=== PATIENT | male | born 1965 | race Caucasian/White ===

== ENCOUNTER 2017-07-16 01:31 | Emergency (ER) | payer OTHER ==
[2017-07-16 01:57] VITALS: BMI 33.3
--- NOTE | 2017-07-16 01:57 | PDOC ---
History of Present Illness - General History Source: Patient Exam Limitations: No Limitations - History of Present Illness Initial Comments: This is a 51 YOM with h/o osteoarthritis of the knee and lumbar disc bulge who presents BIBA c/o nausea, vomiting x7, lightheadedness, and generalized weakness since about 10 pm tonight. He ate a fried chicken sandwich, fries, and Gatorade from [employer] at 9 pm prior to the onset of symptoms, then went to work and began feeling nauseated and lightheaded. He took Nadja [place] and soon after began vomiting non-bloody, non-bilious emesis. He has also had four episodes of diarrhea but he did not check the color of the stool. He denies any recent or current fever, cough, chest pain, SOB, abdominal pain, headache, or other symptoms. He has not been around any sick contacts with similar symptoms. EMS gave him Zofran en route to the ED with relief of his nausea, but he states that his stomach still "doesn't feel right." <Radha Chaves - Last Filed: 07/16/17 04:17> <Charu Brothers - Last Filed: 07/16/17 05:32> - General Chief Complaint: Nausea/Vomiting Stated Complaint: VOMITING Time Seen by Provider: 07/16/17 01:38 Past History - Past Medical History Anemia: No COPD: No Thyroid Disease: No - Immunization History Immunization Up to Date: No - Suicide/Smoking/Psychosocial Hx Smoking History: Never smoked Have you smoked in the past 12 months: No Information on smoking cessation initiated: No Hx Alcohol Use: Yes (Occasional) Drug/Substance Use Hx: No Substance Use Type: Alcohol <Radha Chaves - Last Filed: 07/16/17 04:17> <Charu Brothers - Last Filed: 07/16/17 05:32> - Past Medical History Allergies/Adverse Reactions: Allergies Allergy/AdvReac Type Severity Reaction Status Date / Time Penicillins Allergy Verified 07/16/17 01:40 Home Medications: Ambulatory Orders Ondansetron [Zofran Odt -] 4 mg SL BID #14 od.tablet 07/16/17 Review of Systems - Review of Systems Constitutional: Yes: Chills, Weakness (generalized). No: Fever, Unexplained wgt Loss HEENTM: No: Nose Congestion, Throat Pain Respiratory: No: Cough, Shortness of Breath Cardiac (ROS): No: Chest Pain, Palpitations ABD/GI: Yes: Diarrhea, Nausea, Vomiting. No: Abdominal Distended, Constipated, Abdominal cramping : No: Burning, Dysuria Musculoskeletal: No: Back Pain, Neck Pain Integumentary: No: Bruising, Rash Neurological: Yes: Other (lightheaded). No: Headache, Numbness, Tingling, Weakness Endocrine: No: Unexplained Weight Gain, Unexplained Weight Loss <Radha hCaves - Last Filed: 07/16/17 04:17> *Physical Exam - Vital Signs Last Vital Signs Temp Pulse Resp BP Pulse Ox 98.7 F 92 H 20 141/98 99 07/16/17 01:36 07/16/17 01:36 07/16/17 01:36 07/16/17 01:36 07/16/17 01:36 - Physical Exam General Appearance: Yes: Nourished, Appropriately Dressed, Other (well- appearing adult male in no distress who is answering questions appropriately, appears mildly uncomfortable). No: Apparent Distress HEENT: positive: EOMI, SHAWN, Normal ENT Inspection, Normal Voice, Hearing Grossly Normal. negative: Scleral Icterus (R), Scleral Icterus (L), Nasal Congestion Neck: positive: Trachea midline, Supple. negative: Tender, Rigid Respiratory/Chest: positive: Lungs Clear, Normal Breath Sounds. negative: Respiratory Distress, Crackles, Rhonchi, Stridor, Wheezing Cardiovascular: positive: Regular Rhythm, Regular Rate. negative: Murmur Gastrointestinal/Abdominal: positive: Normal Bowel Sounds, Soft. negative: Tender, Organomegaly, Pulsatile Mass, Guarding Musculoskeletal: positive: Normal Inspection. negative: Decreased Range of Motion, Vertebral Tenderness Extremity: positive: Normal Capillary Refill, Normal Inspection, Normal Range of Motion. negative: Tender, Cyanosis Integumentary: positive: Normal Color, Dry, Warm. negative: Erythema, Rash, Bruising Neurologic: positive: engagement engineer II-XII NML intact (grossly), Fully Oriented, Alert, Normal Mood/Affect, Normal Response, Motor Strength 5/5 <Radha Chaves - Last Filed: 07/16/17 04:17> - Vital Signs Last Vital Signs Temp Pulse Resp BP Pulse Ox 98.6 F 89 18 140/96 99 12/18/17 04:26 07/16/17 04:26 07/16/17 04:26 07/16/17 04:26 07/16/17 04:26 <Charu Brothers - Last Filed: 07/16/17 05:32> ED Treatment Course - LABORATORY CBC & Chemistry Diagram: 07/16/17 02:18 07/16/17 02:18 <Radha Chaves - Last Filed: 07/16/17 04:17> - LABORATORY CBC & Chemistry Diagram: 07/16/17 02:18 07/16/17 02:18 - ADDITIONAL ORDERS Additional order review: Laboratory Results 07/16/17 07/16/17 02:18 02:18 Sodium 140 Potassium 4.4 Chloride 104 Carbon Dioxide 26 Anion Gap 10 BUN 21 H Creatinine 1.3 Creat Clearance w eGFR 58.20 Random Glucose 124 H Calcium 9.4 Total Bilirubin 0.7 AST 35 ALT 38 Alkaline Phosphatase 61 Total Protein 8.6 H Albumin 4.1 Lipase 68 L 07/16/17 02:42 Influenza Types A,B Antigen (MARIN) - Final Nasopharyngeal Swab - Final 07/16/17 02:18 RBC 4.82 MCV 91.0 MCHC 32.6 RDW 13.1 MPV 9.4 Neutrophils % 85.2 H Lymphocytes % 8.1 Monocytes % 5.1 Eosinophils % 1.3 Basophils % 0.3 - Medications Given in the ED: ED Medications Discontinued Medications Generic Name Dose Route Start Last Admin Trade Name Freq PRN Reason Stop Dose Admin Sodium Chloride 1,000 ml 07/16/17 01:59 07/16/17 03:10 Normal Saline - IV 07/16/17 02:00 1,000 ml ONCE ONE Administration <Charu rBothers - Last Filed: 07/16/17 05:32> Medical Decision Making - Medical Decision Making This is a 51 YOM who presents c/o n/v/d which is NBNB and he does not know the color of the diarrhea. No abdominal pain, chest pain, SOB, recent sick contacts, but ate a fried chicken sandwich and [place] fries before the onset. On exam his VS are wnl and he appears mildly uncomfortable but answering appropriately, not actively vomiting, no ttp anywhere. Ordered is CBCD, CMP, lipase, IVF, EKG, flu swab. 07/16/17 04:18 No concerning findings on labs or EKG. Flu swab is negative. The patient has had no episodes of vomiting since arriving to the ED. He improves with 1 liter IVF, and is also taking PO fluids. He is appropriate for discharge home with close OP followup. E-Rx sent for Zofran to [facility]; patient will need to call to have it filled near his home in [place]. Work note is written and return precautions are discussed. <Radha Chaves - Last Filed: 07/16/17 04:17> *DC/Admit/Observation/Transfer - Discharge Dispostion Admit: No <Radha Chaves - Last Filed: 07/16/17 04:17> <Charu Brothers - Last Filed: 07/16/17 05:32> Diagnosis at time of Disposition: Gastroenteritis - Discharge Dispostion Disposition: HOME Condition at time of disposition: Stable - Prescriptions Prescriptions: Ondansetron [Zofran Odt -] 4 mg SL BID #14 od.tablet - Referrals Referrals: STAFF,NOT ON [Primary Care Provider] - - Patient Instructions Printed Discharge Instructions: DI for Viral Gastroenteritis -- Adult Additional Instructions: You were seen in the ER for nausea, vomiting, and diarrhea. You were given Zofran in the ambulance which helped with your symptoms. We gave you IV fluids, checked your blood laboratories, and found no concerning abnormalities. We did a Flu swab which was negative. You most likely have a viral gastroenteritis and antibiotics would not help with this (they could actually make it worse). We are sending an electronic prescription to [facility] for the Zofran to help with your nausea. Please call your pharmacy in the morning when they open, and tell them that you want your prescription filled at that location instead of the location in [place]. Take the Zofran as directed if you feel nauseated or have vomiting. It dissolves under your tongue and gets absorbed through the bottom of the tongue. Follow up with your regular doctor or return to the ER for any new or worsening symptoms. Take tonight (Sunday) off work, rest, and hydrate. Return for any new or worsening symptoms. - Post Discharge Activity Forms/Work/School Notes: Back to Work Attending Attestation - Resident Resident Name: Radha Chaves - ED Attending Attestation I have performed the following: I have examined & evaluated the patient, The case was reviewed & discussed with the resident, I agree w/resident's findings & plan - HPI HPI: 07/16/17 05:30 Pt comes with N/V/ abd discomfort - may be food poisoning or viral gastroenteritis. - Physicial Exam PE: 07/16/17 05:31 Agree with resident - Medical Decision Making 07/16/17 05:32 Labs normal. Pt feeling better. Pt will be discharged home and asked to return if he feels worse. Otherwise follow with PMD as needed. <Charu Brothers - Last Filed: 07/16/17 05:32>
[2017-07-16] MEDS ORDERED: SODIUM CHLORIDE 0.9% 1000 ML INFUS.BAG IV ONE (01:59)
[2017-07-16 02:26] LABS: BASO % 0.3 % (0-2.0); EOS % 1.3 % (0-4.5); MCH 29.7 pg (25.7-33.7); MCHC 32.6 g/dl (32.0-35.9); MEAN PLT VOLUME 9.4 fl (7.5-11.1); NEUT % 85.2 % (42.8-82.8); PLATELET COUNT 202 K/MM3 (134-434); RDW 13.1 % (11.9-15.9)
[2017-07-16 03:08] LABS: ALBUMIN 4.1 g/dl (3.4-5.0); ALK PHOS 61 U/L (45-117); ANION GAP 10 (8-16); BILIRUBIN,TOTAL 0.7 mg/dL (0.2-1.0); CALCIUM 9.4 mg/dL (8.5-10.1); CO2 26 mmol/L (21-32); CREATININE 1.3 mg/dL (0.7-1.3); GLUCOSE,RANDOM 124 mg/dL (74-106); SGPT/ALT 38 U/L (12-78); TOT PROT 8.6 g/dl (6.4-8.2)
[2017-07-16 03:09] LABS: SGOT/AST 35 U/L (15-37)
[2017-07-16 04:28] VITALS: BP 140/96; PULSE 89; TEMP 98.6
== END 2017-07-16 04:57 | disposition home or self-care (01) ==
LOC: SUPCPDRO 01:31 → JER 01:31
DX: K52.9 Noninfective gastroenteritis and colitis, unspecified (principal)
CPT/HCPCS: 36415; 80053; 83690; 85025; 87804; 99282-25

== ENCOUNTER 2018-03-03 06:18 | Emergency (ER) | payer OTHER ==
[2018-03-03 06:28] VITALS: BMI 33.0
[2018-03-03] MEDS ORDERED: IBUPROFEN 600 MG TABLET (FP) PO ONE ×2 (09:01→09:19)
--- NOTE | 2018-03-03 09:03 | PDOC ---
History of Present Illness - General History Source: Patient Exam Limitations: No Limitations - History of Present Illness Initial Comments: 03/03/18 09:05 The patient is a 52-year-old male, with no past medical history, who presents to the ED with right-sided rib pain today. The patient is an [employer] worker and was working overnight when the pain began. He reports that he was pulling a metal bar (around 4 AM today) and heard a pop in his right rib cage as he was twisting his torso. He describes the pain as intermittent, [id number], 10/10 in severity when he is moving and 2/10 when he is still, non-radiating, and exacerbated with deep inspiration and movement. Patient tried stretching with no relief of his symptoms. He denies taking anything for pain prior to arrival. He has never experienced this pain in the past. The patient denies any fever, chills, nausea, vomiting, diarrhea, constipation, or abdominal pain. Denies any chest pain or shortness of breath. Denies any weakness, lightheadedness, numbness or tingling. Allergies: Penicillins Surgical History: None reported. Social History: He denies any tobacco, alcohol, or drug use. <Luh Genao - Last Filed: 03/03/18 10:14> <Serina Mackenzie - Last Filed: 03/03/18 10:41> - General Chief Complaint: Pain Stated Complaint: R SIDED RIB PAIN Time Seen by Provider: 03/03/18 07:27 Past History <Luh Genao - Last Filed: 03/03/18 10:14> - Past Medical History Anemia: No COPD: No Thyroid Disease: No - Immunization History Immunization Up to Date: Yes - Suicide/Smoking/Psychosocial Hx Smoking History: Never smoked Have you smoked in the past 12 months: No Information on smoking cessation initiated: No Hx Alcohol Use: No Drug/Substance Use Hx: No Substance Use Type: None <Sreina Mackenzie - Last Filed: 03/03/18 10:41> - Past Medical History Allergies/Adverse Reactions: Allergies Allergy/AdvReac Type Severity Reaction Status Date / Time Penicillins Allergy Verified 03/03/18 06:26 Home Medications: Ambulatory Orders Ondansetron [Zofran Odt -] 4 mg SL BID #14 od.tablet 07/16/17 Ibuprofen [Motrin -] 600 mg PO TID PRN #21 tablet 03/03/18 Methocarbamol [Robaxin -] 500 mg PO BID PRN #14 tablet 03/03/18 Tramadol HCl 50 mg PO Q6H PRN #8 tablet MDD 4 tabs 03/03/18 Review of Systems - Review of Systems Able to Perform ROS?: Yes Comments:: 03/03/18 09:06 GENERAL/CONSTITUTIONAL: No fever or chills. No weakness. HEAD, EYES, EARS, NOSE AND THROAT: No change in vision. No ear pain or discharge. No sore throat. CARDIOVASCULAR: No chest pain or shortness of breath. RESPIRATORY: No cough, wheezing, or hemoptysis. GASTROINTESTINAL: No nausea, vomiting, diarrhea or constipation. GENITOURINARY: No dysuria, frequency, or change in urination. MUSCULOSKELETAL: (+)Right-sided rib pain. No joint swelling or pain. No neck or back pain. SKIN: No rash NEUROLOGIC: No headache, vertigo, loss of consciousness, or change in strength/ sensation. ENDOCRINE: No increased thirst. No abnormal weight change. HEMATOLOGIC/LYMPHATIC: No anemia, easy bleeding, or history of blood clots. ALLERGIC/IMMUNOLOGIC: No hives or skin allergy. <Luh Genao - Last Filed: 03/03/18 10:14> *Physical Exam - Vital Signs Last Vital Signs Temp Pulse Resp BP Pulse Ox 97.9 F 69 18 120/80 98 03/03/18 06:26 03/03/18 06:26 03/03/18 06:26 03/03/18 06:26 03/03/18 06:26 <Luh Genao - Last Filed: 03/03/18 10:14> - Vital Signs Last Vital Signs Temp Pulse Resp BP Pulse Ox 97.9 F 69 18 120/80 98 03/03/18 06:26 03/03/18 06:26 03/03/18 06:26 03/03/18 06:26 03/03/18 06:26 - Physical Exam Comments: GENERAL: Awake, alert, and fully oriented, in no acute distress HEAD: No signs of trauma EYES: PERRLA, EOMI, sclera anicteric, conjunctiva clear ENT: Auricles normal inspection, hearing grossly normal, nares patent, oropharynx clear without exudates. Moist mucosa NECK: Normal ROM, supple, no lymphadenopathy, JVD, or masses LUNGS: Breath sounds equal, clear to auscultation bilaterally. No wheezes, and no crackles. +Tenderness to R anterior lower rib cage. HEART: Regular rate and rhythm, normal S1 and S2, no murmurs, rubs or gallops ABDOMEN: Soft, nontender, normoactive bowel sounds. No guarding, no rebound. No masses EXTREMITIES: Normal range of motion, no edema. No clubbing or cyanosis. No cords, erythema, or tenderness NEUROLOGICAL: Cranial nerves II through XII grossly intact. Normal speech, normal gait SKIN: Warm, Dry, normal turgor, no rashes or lesions noted. <Serina Mackenzie - Last Filed: 03/03/18 10:41> ED Treatment Course - RADIOLOGY Radiology Studies Ordered: 03/03/18 10:14 Right Rib X-Ray was reviewed by Dr. Mackenzie and over-read by Radiology. Impression: No acute right rib pathology. <Luh Genao - Last Filed: 03/03/18 10:14> Medical Decision Making - Medical Decision Making 03/03/18 09:03 Will obtain XR to r/o rib fx. DDx is rib fx vs muscle strain. <Serina Mackenzie - Last Filed: 03/03/18 10:41> *DC/Admit/Observation/Transfer - Attestations Scribe Attestion: 03/03/18 09:07 Documentation prepared by Luh Genao, acting as medical research tech for Serina Mackenzie MD. <Luh Genao - Last Filed: 03/03/18 10:14> - Discharge Dispostion Decision to Admit order: No <Serina Mackenzie - Last Filed: 03/03/18 10:41> Diagnosis at time of Disposition: Atypical chest pain, Muscle strain - Discharge Dispostion Disposition: HOME Condition at time of disposition: Stable - Prescriptions Prescriptions: Ibuprofen [Motrin -] 600 mg PO TID PRN #21 tablet PRN Reason: Pain Methocarbamol [Robaxin -] 500 mg PO BID PRN #14 tablet PRN Reason: Muscle Spasms Tramadol HCl 50 mg PO Q6H PRN #8 tablet MDD 4 tabs PRN Reason: Severe Pain - Patient Instructions Printed Discharge Instructions: DI for Atypical Chest Pain, DI for Muscle Strain
[2018-03-03] MEDS ORDERED: METHOCARBAMOL 500 MG TABLET PO ONE (10:34)
[2018-03-03] MEDS ORDERED: METHOCARBAMOL 500 MG TABLET ONE (10:48)
[2018-03-03 11:03] VITALS: BP 132/77; PULSE 78; TEMP 98.2
== END 2018-03-03 11:03 | disposition home or self-care (01) ==
LOC: JER 06:18
DX: R07.89 Other chest pain (principal); S29.011A Strain of muscle and tendon of front wall of thorax, initial encounter; X58.XXXA Exposure to other specified factors, initial encounter; Y93.89 Activity, other specified; Y92.89 Other specified places as the place of occurrence of the external cause; Y99.0 Civilian activity done for income or pay
CPT/HCPCS: 71101-TC-RT-FY; 99284-25